=== PATIENT | female | born 2000 | race Two or more races ===

== ENCOUNTER 2024-05-10 12:49 | Emergency (ER) | payer SELFPAY ==
[2024-05-10 12:50] VITALS: BMI 31.8
[2024-05-10 14:31] VITALS: BP 152/79; PULSE 87; RESP 18; TEMP 36.9; O2SAT 98
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
[2024-05-10] MEDS: ACETAMINOPHEN 500 MG TABLET 1000 MG PO (16:11)
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
== END 2024-05-10 16:56 | disposition home or self-care (01) ==
PROVIDERS: Emergency Provider Emergency Medicine; PCP Family Medicine
DX: S00.11XA Contusion of right eyelid and periocular area, initial encounter (principal); S19.9XXA Unspecified injury of neck, initial encounter; S09.90XA Unspecified injury of head, initial encounter; V19.9XXA Pedal cyclist (driver) (passenger) injured in unspecified traffic accident, initial encounter; Y93.55 Activity, bike riding
CPT/HCPCS: 70450; 70486; 72125; 99284; A9270